=== PATIENT | male | born 1950 | race Two or more races ===

== ENCOUNTER → 2020-11-06 | Outpatient (CLI) | payer OTHER | END | disposition home or self-care (01) | LOC: PPH VACUNA 10-31 08:05 | PROVIDERS: ATTEND Emergency Medicine Pediatric Emergency Medicine | DX: Z23 Encounter for immunization (principal) ==

== ENCOUNTER 2022-01-27 13:55 | Outpatient (CLI) | payer OTHER | END 2022-01-27 14:05 | disposition home or self-care (01) | LOC: PPH VACUNA 13:55 | PROVIDERS: ATTEND Emergency Medicine Pediatric Emergency Medicine | DX: Z23 Encounter for immunization (principal) ==

== ENCOUNTER 2022-03-03 10:56 | Outpatient (CLI) | payer OTHER | END 2022-03-03 11:02 | disposition home or self-care (01) | LOC: RAD 10:56 | PROVIDERS: ATTEND Surgery | DX: C18.2 Malignant neoplasm of ascending colon (principal); K43.2 Incisional hernia without obstruction or gangrene; R19.4 Change in bowel habit; Z93.3 Colostomy status ==

== ENCOUNTER 2022-03-04 11:41 | Outpatient (CLI) | payer OTHER | END 2022-03-04 11:46 | disposition home or self-care (01) | LOC: LAB 11:41 | PROVIDERS: ATTEND Surgery | DX: K43.2 Incisional hernia without obstruction or gangrene (principal); C18.2 Malignant neoplasm of ascending colon; R19.4 Change in bowel habit; Z93.3 Colostomy status ==

== ENCOUNTER → 2022-03-09 08:00 | Outpatient (CLI) | payer OTHER ==
[~2022-03-09] VITALS: Ht 182.9 cm; Wt 92.5 kg
[~2022-03-09 08:00] MED LIST: CIALIS5 MG PO; ELIQUIS5 MG PO; FINAST PO; SOTALOL80 MG PO; VITAMIN D31 ML PO
== END | disposition home or self-care (01) ==
LOC: LAB 08:00 → SURH 03-12 11:00 → EDSTATUS 03-12 12:00
PROVIDERS: ATTEND Surgery
DX: Z03.818 Encounter for observation for suspected exposure to other biological agents ruled out (principal); Z20.822 Contact with and (suspected) exposure to COVID-19

== ENCOUNTER 2022-06-01 12:19 | Outpatient (CLI) | payer OTHER | END 2022-06-01 12:21 | disposition home or self-care (01) | LOC: LAB 12:19 | PROVIDERS: ATTEND Surgery | DX: K43.2 Incisional hernia without obstruction or gangrene (principal); C18.2 Malignant neoplasm of ascending colon; R19.4 Change in bowel habit; Z93.3 Colostomy status ==

== ENCOUNTER 2022-06-08 09:30 | Inpatient (IN) | payer OTHER ==
[~2022-06-08] VITALS: Ht 182.9 cm; Wt 92.5 kg
[2022-06-08] MEDS ORDERED: INTEGRA PLUS C1 EACH PO (11:11)
[2022-06-11] MEDS ORDERED: MAXIMUM D3325 MCG (10:14)
[2022-06-11] MEDS ORDERED: MIRALAX510 GM (10:14)
[2022-06-11] MEDS ORDERED: DULCOLAX5 MG (10:14)
[2022-06-11] MEDS ORDERED: KETOROLAC TROMET5 ML (10:14)
[2022-06-11] MEDS ORDERED: ALPRAZOLAM2 MG (10:14)
[2022-06-11] MEDS ORDERED: CENTRUM SILVER1 EAC2 (10:14)
[2022-06-11] MEDS ORDERED: REFRESH OPTIVE10 ML (10:14)
[2022-06-11] MEDS ORDERED: FENOFIBRATE160 MG (10:15)
[2022-06-19] MEDS ORDERED: VANCOMYCIN HCL125 MG PO (08:35)
[2022-06-19] MEDS ORDERED: TRAM1TAB98 PO (08:36)
== END 2022-06-19 13:20 | disposition home or self-care (01) | DRG 330 ==
LOC: SURG 06-11 08:30 → O/R 06-11 09:13 → SURH 06-11 09:13 → SURG 06-11 09:30 → SURH 06-11 16:49
PROVIDERS: Surgery; ADMIT Surgery; ATTEND Surgery
PROC: 0DQM0ZZ Repair Descending Colon, Open Approach (ICD-10-PCS; 2022-06-11)
PROC: 0DBP0ZZ Excision of Rectum, Open Approach (ICD-10-PCS; 2022-06-11)
PROC: 0DQ80ZZ Repair Small Intestine, Open Approach (ICD-10-PCS; 2022-06-11)
PROC: 0DB80ZZ Excision of Small Intestine, Open Approach (ICD-10-PCS; 2022-06-11)
PROC: 0DJD8ZZ Inspection of Lower Intestinal Tract, Via Natural or Artificial Opening Endoscopic (ICD-10-PCS; 2022-06-11)
PROC: 0D9670Z Drainage of Stomach with Drainage Device, Via Natural or Artificial Opening (ICD-10-PCS; 2022-06-11)
PROC: 0DBM0ZZ Excision of Descending Colon, Open Approach (ICD-10-PCS; principal; 2022-06-11 08:30)
PROC: 0WUF0JZ Supplement Abdominal Wall with Synthetic Substitute, Open Approach (ICD-10-PCS; 2022-06-11 08:30)
PROC: 4A12X4Z Monitoring of Cardiac Electrical Activity, External Approach (ICD-10-PCS; 2022-06-12)
PROC: 30233N1 Transfusion of Nonautologous Red Blood Cells into Peripheral Vein, Percutaneous Approach (ICD-10-PCS; 2022-06-16)
PROC: 8E0ZXY6 Isolation (ICD-10-PCS; 2022-06-16)
DX: K43.0 Incisional hernia with obstruction, without gangrene (principal); A04.72 Enterocolitis due to Clostridium difficile, not specified as recurrent; C18.2 Malignant neoplasm of ascending colon; K91.71 Accidental puncture and laceration of a digestive system organ or structure during a digestive system procedure; K91.89 Other postprocedural complications and disorders of digestive system; K56.7 Ileus, unspecified; K92.1 Melena; R44.2 Other hallucinations; I48.20 Chronic atrial fibrillation, unspecified; Z43.3 Encounter for attention to colostomy; K66.0 Peritoneal adhesions (postprocedural) (postinfection); K62.89 Other specified diseases of anus and rectum; I11.9 Hypertensive heart disease without heart failure; R19.4 Change in bowel habit

== ENCOUNTER 2022-08-16 19:05 | Emergency (ER) | payer OTHER ==
[~2022-08-16] VITALS: Ht 182.9 cm; Wt 80.3 kg
[~2022-08-16 19:05] MED LIST changes: +ALPRAZOLAM2 MG; +CENTRUM SILVER1 EAC2; +DULCOLAX5 MG; +FENOFIBRATE160 MG; +INTEGRA PLUS C1 EACH PO; +KETOROLAC TROMET5 ML; +MAXIMUM D3325 MCG; +MIRALAX510 GM; +REFRESH OPTIVE10 ML; +TRAM1TAB98 PO; +VANCOMYCIN HCL125 MG PO
== END 2022-08-17 00:31 | disposition home or self-care (01) ==
LOC: ER 19:05
DX: K52.9 Noninfective gastroenteritis and colitis, unspecified (principal); Z20.822 Contact with and (suspected) exposure to COVID-19